=== PATIENT | male | born 1975 | race Caucasian/White ===

== ENCOUNTER 2017-03-29 10:52 | Emergency (ER) | payer SELFPAY ==
[2017-03-29 11:12] VITALS: BP 158/105
[2017-03-29] MEDS ORDERED: Ipratropium 0.5MG/2.5ML NEB* 0.5 MG/2.5 ML NEB.SOLN INH ONE (11:50)
[2017-03-29] MEDS ORDERED: Albuterol 2.5 MG/3 ML NEB.SOL* (0.083%) INH ONE (11:50)
[2017-03-29] MEDS ORDERED: predniSONE TAB* 20 MG PO ONE (11:51)
[2017-03-29] MEDS ORDERED: LoraTADine TAB(NF) 10 MG TAB (AUTOSUB to CETIRIZINE) PO ONE (11:51)
--- NOTE | 2017-03-29 12:29 | UC ---
Respiratory Complaint HPI - HPI Summary HPI Summary: Pt reports that he has COPD and has been without a PCP and is seeking medication refill - History of Current Complaint Chief Complaint: UCMedRefill Stated Complaint: MEDICATION REQUEST (COPD) Time Seen by Provider: 03/29/17 11:45 Hx Obtained From: Patient Onset/Duration: Gradual Onset, Lasting Weeks, Still Present, Worse Since - onset Timing: Constant Severity Initially: Mild Severity Currently: Moderate Character: Cough: Nonproductive Aggravating Factors: Exertion, Deep Breaths, Recumbent Position Alleviating Factors: Nothing Associated Signs And Symptoms: Positive: Wheezing - Risk Factors Pulmonary Embolism Risk Factors: Negative Cardiac Risk Factors: Smoking Pseudomonas Risk Factors: Chronic Lung Disease Tuberculosis Risk Factors: Negative - Allergies/Home Medications Allergies/Adverse Reactions: Allergies Allergy/AdvReac Type Severity Reaction Status Date / Time Acetaminophen Allergy See Comment Verified 03/29/17 11:07 Pregabalin [From Lyrica] Allergy See Comment Verified 03/29/17 11:07 Trazodone Allergy Rash And Verified 03/29/17 11:07 Itching PMH/Surg Hx/FS Hx/Imm Hx Previously Healthy: Yes Respiratory History: COPD - Surgical History Surgical History: None Surgery Procedure, Year, and Place: GASTROSCOPE 04/27 - Family History Known Family History: Positive: Cardiac Disease - Social History Occupation: Employed Full-time Lives: With Family Alcohol Use: None Alcohol Amount: NOT IN A COUPLE YRS Substance Use Type: None Substance Use Comment - Amount & Last Used: no longer uses fentanyl patch Smoking Status (MU): Heavy Every Day Tobacco Smoker Type: Cigarettes Amount Used/How Often: 1/2 PPD Length of Time of Smoking/Using Tobacco: Since Age 15 Have You Smoked in the Last Year: Yes Household Exposure Type: Cigarettes - Immunization History Most Recent Influenza Vaccination: Not the 2016/2017 Season Review of Systems Constitutional: Negative Skin: Negative Eyes: Negative ENT: Negative Respiratory: Shortness Of Breath, Cough, Other - wheezing Cardiovascular: Negative Gastrointestinal: Negative Genitourinary: Negative Motor: Negative Neurovascular: Negative Musculoskeletal: Negative Neurological: Negative Psychological: Negative Is Patient Immunocompromised?: No All Other Systems Reviewed And Are Negative: Yes Physical Exam Triage Information Reviewed: Yes Appearance: Well-Appearing Vital Signs: Initial Vital Signs Temp 98.5 F 03/29/17 11:04 Pulse 96 03/29/17 11:04 Resp 18 03/29/17 11:04 BP 158/105 03/29/17 11:04 Pulse Ox 98 03/29/17 11:04 Vital Signs Reviewed: Yes Eye Exam: Normal ENT Exam: Other ENT: Positive: Nasal congestion Dental Exam: Normal Neck exam: Normal Respiratory Exam: Other Respiratory: Positive: Decreased breath sounds - bases, Wheezing Musculoskeletal Exam: Normal Neurological Exam: Normal Psychological Exam: Normal Skin Exam: Normal UC Diagnostic Evaluation - Laboratory O2 Sat by Pulse Oximetry: 98 Respiratory Course/Dx - Differential Dx/Diagnosis Differential Diagnosis/HQI/PQRI: Asthma, Exacerbation Of COPD Provider Diagnoses: exacerbation of COPD. medication refill Discharge - Discharge Plan Condition: Stable Disposition: HOME Prescriptions: Albuterol/Ipratropium RESP(NF) [Combivent Respimat (NF)] 2 puff INH Q4H PRN #1 inh PRN Reason: Sob/Wheezing Cetirizine* [ZyrTEC 10 MG TAB*] 10 mg PO DAILY #20 tab Fluticasone-Salmeterol 250-50* [Advair Diskus 250-50*] 1 puff INH DAILY #1 Fluticasone-Salmeterol 250-50* [Advair Diskus 250-50*] 1 puff INH DAILY #1 diskus methylPREDNISolone TAB* [Medrol TAB*] 4 - 8 mg PO .SEE AWA #1 awa Patient Education Materials: COPD (Chronic Obstructive Pulmonary Disease) (ED) Referrals: Amanda Griffith MD [Medical Doctor] - No Primary Care Phys,NOPCP [Primary Care Provider] - Natan Mott MD [Medical Doctor] - Additional Instructions: Please follow up with a PCP or return to clinic as needed. We have provided a referral to a track repair laborer. Please follow up as needed.
== END 2017-03-29 12:28 | disposition home or self-care (01) ==
LOC: UCCORT 10:52
DX: Z76.0 Encounter for issue of repeat prescription (principal); J44.1 Chronic obstructive pulmonary disease with (acute) exacerbation; Z88.6 Allergy status to analgesic agent; F17.210 Nicotine dependence, cigarettes, uncomplicated
CPT/HCPCS: 99213; A9270-GY; G0463; J7512; J7644